=== PATIENT | male | born 1950 | race Caucasian/White ===

== ENCOUNTER 2016-09-04 20:38 | Inpatient (IN) | payer MEDICARE ==
[2016-09-04] MEDS ORDERED: NS 1,000 ML IV ONE (20:49)
[2016-09-04] MEDS ORDERED: ALBUTEROL 0.083% 3 ML NEB NEB ONE (20:50)
[2016-09-04 20:56] LABS: ALLEN'S TEST PASS; BEb 6.7 (+/- 2)
[2016-09-04 20:57] LABS: ABG Draw Site Right Radial
--- NOTE | 2016-09-04 20:58 | EDPRACDOC ---
- General Information Chief Complaint: Dyspnea/Resp distress Stated Complaint: RESP Time Seen by Provider: 09/04/16 20:42 Information Source: Patient Mode Of Arrival: Ambulance Allergies/Adverse Reactions: Allergies Allergy/AdvReac Type Severity Reaction Status Date / Time codeine Allergy See Verified 09/04/16 20:54 Comments - History of Present Illness Onset: 3 WEEKS HPI: PT HAS BEEN SOB FOR THE PAST FEW WEEKS. PT INITIALLY WENT TO URGENT CARE AND WAS TOLD HE HAD BRONCHITIS. HE WAS PUT ON PREDNISONE AND LEVAQUIN. PT SAID THAT HE WAS NOT GETTING ANY BETTER, SO HE WENT BACK TO URGENT CARE A FEW DAYS AGO. THE PT HAD A FEVER THEN. HIS ABX WAS CHANGED TO BIAXIN. THE PT IS STILL SOB. EMS GAVE PT 125 MG OF SOLU MEDROL AND 1 ALB NEB. 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 DRYING MACHINE OPERATOR YES Solu-Medrol (Dose/Time) 125 Meds/Treatments Given Neb Treatment(Albuterol) Medications MILK DRYING MACHINE OPERATOR (Medication/ dudneb and albuterol IH Dose/Time) EMS Treatment BLS,EKG IV Yes ED Past Medical History - Patient Medical History Cardiac History: Reports: Hypercholesterolemia Respiratory History: Reports: COPD Psychological History: Denies: Depression Surgical History: Reports: Appendectomy - Social Medical History Smoking Status: Heavy tobacco smoker (5 or more cigarettes/day or daily pipe/ cigar) ETOH: None Substance Abuse: None Lives With: Spouse Lives In: Home EDM Review of Systems - Review of Systems ROS Negative Except as Marked: Yes All systems reviewed and were negative except as marked Constitutional: Fever Respiratory: Shortness of Breath - Physical Exam Constitutional: Alert (Awake), Distress Oriented to: Time, Person, Place Last recorded Vital Signs: Last Vital Signs Temp 98.6 F 09/04/16 20:43 Pulse 115 09/04/16 20:43 Resp 27 H 09/04/16 20:43 BP 209/102 H 09/04/16 20:43 Pulse Ox 89 L 09/04/16 20:43 Oxygen Pulse Oxygen Saturation 89 O2 Device Oxygen Flow Rate Fraction of Inspired Oxygen ( FIO2) - HEENT Head: Normal ( normocephalic) Eye Exam: Normal (PERRL, EOMI, Sclera white) Oropharynx: Normal (Pharynx:Moist without exudate,Gums-no swelling) ENT EAC: Normal TMJ: Normal Nose: No Symptoms Reported (septum midline) Neck: Normal (FROM, trachea at midline) - Respiratory/Cardiovascular Respiratory: Tachypnea Cardiovascular: Tachycardia - GI Auscultation: Normal (NABS) Palpation: Normal (Soft,No rebound or guarding, non distended) Tenderness: Non tender Sewell's Sign: Negative - Musculoskeletal Back: Normal (Non-Tender) Extremities: Normal (Normal tone, Pulses 2+ No cyanosis or edema, FROM) - Integumentary Skin: Normal, Warm, Dry Lymphatics: Normal (no adenopathy) - Neurologic Memory Impaired: Normal Motor Function: Normal (Normal tone, Pulses 2+ No cyanosis or edema, FROM) Cranial Nerve: Normal (CN II-X11 intact sensation, strength 5/5) Cerebellar: Normal Mood Description: Normal Thought: Coherent Perception: Normal ED SOB MDM - Results Result Diagrams: 09/04/16 21:00 09/04/16 21:00 - EKG EKG #1 EKG Time: 20:49 -: Yes EKG interpreted by me Rate: bpm: 108 [place]: Normal Rhythm: ST Block: None Hypertrophy: None ST: Normal - Diagnostic Imaging Chest Image interpreted by: Radiologist Diagnostic Imaging Comments: Question slightly prominent central pulmonary arteries though cannot completely exclude RIGHT hilar enlargement by this portable lordotic exam; followup upright PA and lateral chest radiographs recommended to better assess - Departure Yes I personally saw and evaluated the patient. Disposition: Admit IP To This Hospital Condition: Fair Final Diagnosis: Acute exacerbation of chronic obstructive airways disease, Acute bronchitis, Tobacco abuse, Acute respiratory failure with hypoxia Instructions: COPD (Chronic Obstructive Pulmonary Disease) (ED) Education/Counseling Given To: Patient Education/Counseling Given Regarding: Diagnosis, Treatment, Follow Up Referrals: Pasha Farah MD [Primary Care Provider] - One Week Decision to Admit Time: 22:02 Decision to admit date: 09/04/16 Decision to admit: from ED - Physician Consulted Hospitalist Provider Called: Alex Salvador
[2016-09-04 21:14] LABS: AUTOMATED BASOPHIL 0.4 % (0-2); AUTOMATED LYMPH 8.6 % (17-44); AUTOMATED MONOCYTE 6.6 % (3-10); AUTOMATED NEUTROPHIL 84.4 % (45-76); MPV 8.5 fL (7.4-10.4)
[2016-09-04 21:22] LABS: PARTIAL THROMB. TIME 29.2 SEC (22-35)
[2016-09-04 21:25] LABS: BLOOD UREA NITROGEN 15 MG/DL (9-20); CALC CORRECTED 8.8 MG/DL (8.4-10.2); CALCIUM 8.3 MG/DL (8.4-10.2); CALCULATED OSMOLALITY 274 MOs/Kg (270-290); CHLORIDE 101 mEq/L (98-107); GLUCOSE 135 MG/DL (70-99); SODIUM LEVEL 141 mEq/L (137-146); TOTAL PROTEIN 6.5 G/DL (6.3-8.2)
--- NOTE | 2016-09-04 21:33 | DIRPT ---
CLINICAL DATA: Shortness of breath for past few weeks, bronchitis, not improving with treatment EXAM: PORTABLE CHEST 1 VIEW COMPARISON: Portable exam 2114 hours without priors for comparison. FINDINGS: Lordotic technique. Normal heart size. Question slightly prominent central pulmonary arteries. Mediastinal contours and pulmonary vascularity otherwise normal. Lungs clear. No pleural effusion or pneumothorax. IMPRESSION: Question slightly prominent central pulmonary arteries though cannot completely exclude RIGHT hilar enlargement by this portable lordotic exam; followup upright PA and lateral chest radiographs recommended to better assess. Electronically Signed By: Canelo London M.D. On: 09/04/2016 21:31
[2016-09-04] MEDS ORDERED: CEFTRIAXONE 1 GM in D5W 100 ML IV ONE (22:01)
[2016-09-04] MEDS ORDERED: AZITHROMYCIN 250 MG TAB PO ONE (22:01)
[2016-09-04] MEDS ORDERED: GUAIFENESIN 200 MG/10 ML UDC PO PRN (22:17)
[2016-09-04] MEDS ORDERED: Docusate Sodium 100 MG CAP PO PRN (22:17)
[2016-09-04] MEDS ORDERED: MAGNESIUM HYDROXIDE 30 ML BOTTLE PO PRN (22:17)
[2016-09-04] MEDS ORDERED: BENZONATATE 100 MG PERLES PO PRN (22:17)
[2016-09-04] MEDS ORDERED: ONDANSETRON HCL 4 MG/2 ML VIAL IV PRN (22:17)
[2016-09-04] MEDS ORDERED: ACETAMINOPHEN 325 MG/TAB TABLET PO PRN (22:17)
--- NOTE | 2016-09-04 22:17 | HISTPHYS ---
- Chief Complaint shortness of breath - History of Present Illness Mr. Francisco is a 66-year-old white male with a history of severe COPD not currently on oxygen at hold who presents the emergency room with approximately 10 days of increasing shortness of breath, cough and congestion. He was seen at urgent care approximately 1 week ago and started on antibiotics and prednisone. Despite aggressive care he has continued to deteriorate. He has been using his nebulizers on a regular basis and much more frequently the last 24-48 hours. Today he says he felt weak and dizzy. He could hear and self wheezing audibly. He had panting respirations. In the emergency room he is mildly hypercapnic but he severely hypoxic. He has increased work of breathing and significant distress. Chest x-ray shows no acute infiltrate but given his severe hypoxia and respiratory difficulty he will be admitted to the hospital for further evaluation and management. - Medical History Cardiac History: Reports: No Significant History, Hypercholesterolemia Respiratory History: Reports: COPD GI/ History: Reports: No Significant History Musculoskeletal History: Reports: No Significant History Systemic History: Reports: No Significant History Neurological History: Reports: No Significant History Psychological History: Denies: Depression - Surgical History Reports: Appendectomy - Medictions/Allergies Allergies codeine Allergy (Verified 09/04/16 20:54) See Comments sedation Current Medication List: Reviewed - Family History Reports: Hypertension, Cardiac Disorders - Social History Travel Outside of [place] in the Last 3 Months?: No Lives: With Family Smoking Status: Heavy tobacco smoker (5 or more cigarettes/day or daily pipe/ cigar) Social History: Denies: Alcohol Use - Review of Systems Yes All systems reviewed and were negative except as marked Constitutional: Fever, Fatigue, Weakness - Eyes No Symptoms Reported. negative: Blurred Vision, Double Vision, Discharge, Redness - Ears No Symptoms Reported. negative: Drainage, Hearing Loss - Nose No Symptoms Reported. negative: Abrasion, Bleeding, Congestion - Mouth Mouth: No Symptoms Reported. negative: Pain, Drooling - Throat/Neck No Symptoms Reported. negative: Pain, Hoarseness, Snoring - Respiratory Cough, Shortness of Breath, Wheezing, Bronchitis. negative: Sputum - Cardiovascular No Symptoms Reported. negative: Chest Pain, Cyanosis, Palpitations - Gastrointestinal Gastrointestinal: No Symptoms Reported. negative: Nausea, Vomiting, Abdominal Pain - Genitourinary Genitourinary: No Symptoms Reported. negative: Bleeding, Dysuria, Discharge - Neurological No Symptoms Reported. negative: Dizziness, Seizure - Musculoskeletal Musculoskeletal:: No Symptoms Reported. negative: Chronic low back pain, Stiffness, Gout - Integumentary No Symptoms Reported. negative: Bruising, Rash - Allergic/Immunologic No Symptoms Reported. negative: Hives, Itching - Hematologic No Symptoms Reported. negative: Lymphadenopathy, Anemia - Endocrine No Symptoms Reported. negative: Weight Gain, Weight Loss, Excessive Sweating, Heat Intolerance - Psychiatric No Symptoms Reported. negative: Anxiety, Depression, Hallucinations - Physical Exam Constitutional: Alert (Awake), Distress. negative: Well appearing (Acutely ill- appearing) Oriented to: Time, Person, Place Exam: Last Vital Signs Temp 98.6 F 09/04/16 20:43 Pulse 105 09/04/16 21:13 Resp 22 09/04/16 21:13 BP 167/79 09/04/16 21:13 Pulse Ox 92 09/04/16 21:13 Intake & Output 09/04/16 09/04/16 09/04/16 07:59 15:59 23:59 Patient's weight 102.058 kg - HEENT Head: Normal ( normocephalic) Eye: Normal (PERRL, EOMI, Sclera white) Oropharynx: Normal (Pharynx:Moist without exudate,Gums-no swelling) ENT EAC: Normal TMJ: Normal Nose: No Symptoms Reported (septum midline) - Respiratory/Cardiovascular Respiratory: Accessory Muscle Use, Rhonchi, Tachypnea, Wheezes, Other ( Increased work of breathing) Cardiovascular: Tachycardia. negative: Irregular, Systolic murmur - GI Auscultation: Normal (NABS) Palpation: Normal (Soft,No rebound or guarding, non distended) Tenderness: Non tender - Musculoskeletal Back: Normal (Non-Tender). negative: Abrasion, Ecchymosis Extremities: Normal (Normal tone, Pulses 2+ No cyanosis or edema, FROM), Femoral Pulse, Pedal Pulse. negative: Calf Tenderness, Clubbing, Edema, Pedal Edema - Integumentary Skin: Normal, Warm, Dry Lymphatics: Normal (no adenopathy). negative: Adenopathy - Neurologic Memory Impaired: Normal Motor Function: Normal Cranial Nerve: Normal Cerebellar: Normal Mood Description: Normal Thought: Coherent Perception: Normal - Focused CV Perfusion Exam Vital Signs: Last Vital Signs Temp 98.6 F 09/04/16 20:43 Pulse 105 09/04/16 21:13 Resp 22 09/04/16 21:13 BP 167/79 09/04/16 21:13 Pulse Ox 92 09/04/16 21:13 - Lab Results Laboratory Results - last 24 hr 09/04/16 09/04/16 09/04/16 20:50 21:00 21:00 WBC RBC Hgb Hct MCV MCH MCHC RDW Plt Count MPV Neut % (Auto) Lymph % (Auto) [place] % (Auto) Eos % (Auto) Baso % (Auto) Absolute Neuts (auto) Absolute Lymphs (auto) PT INR APTT Puncture Site Right radial pH 7.390 pCO2 55.0 H pO2 54.0 L HCO3 33.3 H Total CO2 35.0 H Base Excess 6.7 H FiO2 % .21 Specimen Drawn By [employer] Sodium 141 Potassium 4.1 Chloride 101 Carbon Dioxide 34 H Anion Gap 10 BUN 15 Creatinine 0.70 Estimated GFR (MDRD) > 60 Glucose 135 H Calculated Osmolality 274 Lactic Acid 1.2 Calcium 8.3 L Corrected Calcium 8.8 Total Bilirubin 0.4 AST 44 ALT 47 Alkaline Phosphatase 55 Troponin I < 0.01 Total Protein 6.5 Albumin 3.5 09/04/16 09/04/16 21:00 21:00 WBC 14.1 H RBC 5.33 Hgb 15.9 Hct 48.3 MCV 91 MCH 29.9 MCHC 33.0 RDW 14.6 H Plt Count 162 MPV 8.5 Neut % (Auto) 84.4 H Lymph % (Auto) 8.6 L [place] % (Auto) 6.6 Eos % (Auto) 0.0 Baso % (Auto) 0.4 Absolute Neuts (auto) 11.84 H Absolute Lymphs (auto) 1.13 PT 10.7 INR 1.0 APTT 29.2 Puncture Site pH pCO2 pO2 HCO3 Total CO2 Base Excess FiO2 % Specimen Drawn By Sodium Potassium Chloride Carbon Dioxide Anion Gap BUN Creatinine Estimated GFR (MDRD) Glucose Calculated Osmolality Lactic Acid Calcium Corrected Calcium Total Bilirubin AST ALT Alkaline Phosphatase Troponin I Total Protein Albumin - Assessment (1) Acute respiratory failure with hypoxia J96.01 - ACUTE RESPIRATORY FAILURE WITH HYPOXIA Acute Present on Admission: Yes Severe with significant hypoxia. He does not currently wear oxygen at home and unfortunately continues to smoke 2 packs of cigarettes daily. He says he is willing to stay in the hospital for a day but if no better wants to leave. He is wheezing diffusely with increased work of breathing. We will start him on IV Solu-Medrol at high dose. IV Rocephin azithromycin. Will use duo nebs and Mucomyst nebs to help with secretions. (2) Acute bronchitis J20.9 - ACUTE BRONCHITIS, UNSPECIFIED Acute Present on Admission: Yes IV antibiotics and pulmonary toilet (3) Acute exacerbation of chronic obstructive airways disease J44.1 - CHRONIC OBSTRUCTIVE PULMONARY DISEASE W (ACUTE) EXACERBATION Acute Present on Admission: Yes IV Solu-Medrol at high dose. Nebulizer treatments and pulmonary toilet. (4) Tobacco abuse Z72.0 - TOBACCO USE Acute Present on Admission: Yes Counseled cessation. However he does not seem particularly interested in quitting Case Care Discussed with: Patient, Family, Nursing Staff, Resource Management, Respiratory Therapy
[2016-09-04] MEDS ORDERED: Vaccine Screening Complete SCH (23:00)
[2016-09-04] MEDS: NS/KCl 20 mEq 1,000 ML IV SCH (23:49)
[2016-09-04] MEDS: METHYLPREDNISOLONE 125 MG/2 ML VIAL IV SCH (23:51)
[2016-09-05] MEDS: NICOTINE 21 MG PATCH TOP SCH ×2 (00:14→23:36)
[2016-09-05] MEDS: ENOXAPARIN 40 MG/0.4 ML PFS SQ SCH ×3 (00:15→17:39)
[2016-09-05] MEDS: LORAZEPAM 2 MG/ML VIAL IV PRN ×4 (00:18→23:37)
[2016-09-05] MEDS: AZITHROMYCIN 500 MG in D5W 250 ML IV SCH (00:22)
[2016-09-05] MEDS ORDERED: ENOXAPARIN 60 MG/0.6 ML PFS SQ SCH (01:00)
[2016-09-05] MEDS: ACETYLCYSTEINE 20% SOLN 4 ML NEB SCH ×3 (02:02→20:01)
[2016-09-05] MEDS: Albuterol/Ipratropium Neb 3 ML NEB NEB SCH ×4 (02:03→19:59)
[2016-09-05 03:29] LABS: BLOOD UREA NITROGEN 16 MG/DL (9-20); CALCIUM 8.4 MG/DL (8.4-10.2); CALCULATED OSMOLALITY 273 MOs/Kg (270-290); CHLORIDE 102 mEq/L (98-107); GLUCOSE 156 MG/DL (70-99); SODIUM LEVEL 140 mEq/L (137-146)
[2016-09-05 05:29] LABS: ALLEN'S TEST PASS; BEb 3.2 (+/- 2); TCO2 33.5 MMOL/L (23-27)
[2016-09-05 05:31] LABS: ABG Draw Tech RR; MODE NC RATE
[2016-09-05] MEDS: METHYLPREDNISOLONE 125 MG/2 ML VIAL IV SCH ×4 (06:06→23:37)
[2016-09-05] MEDS: NS/KCl 20 mEq 1,000 ML IV SCH ×3 (11:04→20:34)
[2016-09-05] MEDS ORDERED: NICOTINE PO PRN (13:55)
[2016-09-05] MEDS ORDERED: NICOTINE PO SCH (14:05)
--- NOTE | 2016-09-05 21:27 | GENMEDPROG ---
Subjective Note: Patient in bed responsive follows commands ,visibly short of breath with audible wheezes and rhonchi as. Coughing producing fair amount thick sputum Notes Reviewed: Yes Events from last night noted and discussed with Clinical Staff Current Medication List: Reviewed Currently: Reports: Cough, Wheezing, SANTANA, SOB, Sputum, Tobacco Use/Hx, Alcohol Hx, Reflux Sx DVT Prophylaxis: Yes - Physical Examination Vital Signs and I&O: Last Vital Signs Temp 98.5 F 09/05/16 17:04 Pulse 105 09/05/16 20:02 Resp 20 09/05/16 17:04 BP 135/89 09/05/16 17:04 Pulse Ox 92 09/05/16 20:02 Oxygen Pulse Oxygen Saturation 92 O2 Device Nasal Cannula Oxygen Flow Rate 1 Fraction of Inspired Oxygen ( FIO2) Intake & Output 09/02/16 09/03/16 09/04/16 09/05/16 23:59 23:59 23:59 23:59 Intake Total 1005 2203 Output Total 200 2325 Balance 805 -122 Patient's weight 98.203 kg 98.571 kg General: Alert, Oriented x3, Cooperative, Moderate distress HEENT: Normal, PERRLA, EOMI, Anicteric Sclera Neck: Non-tender, Normal inspection, Limited range of motion Lymphatics: Normal (no adenopathy). negative: Adenopathy Respiratory: Accessory Muscle Use, Diminished, Rhonchi, Tachypnea, Wheezes, Other (Increased work of breathing) Cardiovascular: Regular rate, Normal S1, Normal S2, Murmurs GI: Normal bowel sounds, Soft, Non tender, No hepatospenomegaly, No masses, Obese Extremities/Musculoskeletal: Normal pulses, Edema, Clubbing, Cyanosis, DJD Skin: Warm,Dry and Intact, No rashes, No breakdown, No significant lesion Neurological: Normal tone, Cranial nerves 3-12 NL Psych/Mental Status: Anxious Last Vital Signs Temp 98.5 F 09/05/16 17:04 Pulse 105 09/05/16 20:02 Resp 20 09/05/16 17:04 BP 135/89 09/05/16 17:04 Pulse Ox 92 09/05/16 20:02 09/05/16 03:10 09/05/16 03:10 Patient Name: JOSE DE JESUS CALZADA LOC: ED : 1950 AGE: 66 Order Date:09/04/16 Date of Service:01/14 Report # [id number] Ord Physician: Kerry Bailon MD Exam # [id number] Emergency Physician: Kerry Bailon MD Exam(s): [id number] RAD/DG CHEST PORTABLE CLINICAL DATA: Shortness of breath for past few weeks, bronchitis, not improving with treatment EXAM: PORTABLE CHEST 1 VIEW COMPARISON: Portable exam 2114 hours without priors for comparison. FINDINGS: Lordotic technique. Normal heart size. Question slightly prominent central pulmonary arteries. Mediastinal contours and pulmonary vascularity otherwise normal. Lungs clear. No pleural effusion or pneumothorax. IMPRESSION: Question slightly prominent central pulmonary arteries though cannot completely exclude RIGHT hilar enlargement by this portable lordotic exam; followup upright PA and lateral chest radiographs recommended to better assess. Electronically Signed By: Canelo London M.D. On: 09/04/2016 21:31 - Assessment (1) Acute respiratory failure with hypoxia Acute J96.01 - ACUTE RESPIRATORY FAILURE WITH HYPOXIA Comment/Plan: Severe with significant hypoxia. He does not currently wear oxygen at home and unfortunately continues to smoke 2 packs of cigarettes daily. He says he is willing to stay in the hospital for a day but if no better wants to leave. He is wheezing diffusely with increased work of breathing. We will start him on IV Solu-Medrol at high dose. IV Rocephin azithromycin. Will use duo nebs and Mucomyst nebs to help with secretions. (2) Acute exacerbation of chronic obstructive airways disease Acute J44.1 - CHRONIC OBSTRUCTIVE PULMONARY DISEASE W (ACUTE) EXACERBATION Comment/Plan: IV Solu-Medrol at high dose. Nebulizer treatments and pulmonary toilet. (3) Bronchopneumonia Acute J18.0 - BRONCHOPNEUMONIA, UNSPECIFIED ORGANISM Comment/Plan: Continue antibiotics mucolytics and aggressive pulmonary toilet. (4) HTN (hypertension) Acute I10 - ESSENTIAL (PRIMARY) HYPERTENSION Qualifiers: Hypertension type: essential hypertension Qualified Code(s): I10 - Essential (primary) hypertension Comment/Plan: Continue benazepril (5) GERD (gastroesophageal reflux disease) Acute K21.9 - GASTRO-ESOPHAGEAL REFLUX DISEASE WITHOUT ESOPHAGITIS Qualifiers: Esophagitis presence: without esophagitis Qualified Code(s): K21.9 - Gastro -esophageal reflux disease without esophagitis Comment/Plan: add PI (6) Nicotine addiction Acute F17.200 - NICOTINE DEPENDENCE, UNSPECIFIED, UNCOMPLICATED Qualifiers: Nicotine product type: cigarettes Substance use status: other nicotine- induced disorder Qualified Code(s): F17.218 - Nicotine dependence, cigarettes , with other nicotine-induced disorders Comment/Plan: Strongly encouraged to cut back and quit Case Care Discussed with: Patient, Family, Nursing Staff, Respiratory Therapy, Reservation Agent Education/Counseling Given To: Patient Education/Counseling Given Regarding: Diagnosis, Treatment, Prognosis, Follow Up Total Time: 50 min . Critical Care: No Code: 25272 (12+)
[2016-09-05] MEDS: CEFTRIAXONE 1 GM in D5W 100 ML IV SCH (23:36)
[2016-09-06] MEDS ORDERED: LORAZEPAM 2 MG/ML VIAL IV ONE (01:13)
[2016-09-06] MEDS ORDERED: LORAZEPAM 2 MG/ML VIAL IV PRN ×2 (01:27→14:54)
[2016-09-06] MEDS: AZITHROMYCIN 500 MG in D5W 250 ML IV SCH (01:32)
[2016-09-06] MEDS: Albuterol/Ipratropium Neb 3 ML NEB NEB SCH ×4 (01:42→20:12)
[2016-09-06] MEDS: NS/KCl 20 mEq 1,000 ML IV SCH ×3 (05:48→21:49)
[2016-09-06] MEDS: PANTOPRAZOLE 40 MG TAB PO SCH (05:51)
[2016-09-06] MEDS: METHYLPREDNISOLONE 125 MG/2 ML VIAL IV SCH ×4 (05:51→21:55)
[2016-09-06] MEDS: Albuterol/Ipratropium Neb 3 ML NEB NEB PRN ×3 (05:57→23:02)
[2016-09-06 07:02] LABS: BLOOD UREA NITROGEN 20 MG/DL (9-20); CALCIUM 8.6 MG/DL (8.4-10.2); CALCULATED OSMOLALITY 273 MOs/Kg (270-290); CHLORIDE 97 mEq/L (98-107); GLUCOSE 124 MG/DL (70-99); SODIUM LEVEL 140 mEq/L (137-146)
[2016-09-06] MEDS: ROSUVASTATIN 10 MG TAB PO SCH (08:51)
[2016-09-06] MEDS: GUAIFENESIN 600 MG LA TAB PO SCH ×2 (08:51→21:50)
[2016-09-06] MEDS ORDERED: BUDESONIDE 0.5 MG NEB NEB SCH (09:00)
[2016-09-06] MEDS ORDERED: ACLIDINIUM BROMIDE IH SCH (09:00)
[2016-09-06] MEDS ORDERED: Non-Formulary Medication ITEM (Rosuvastatin Calcium [Crestor] 5 MG) PO SCH (09:00)
[2016-09-06] MEDS ORDERED: ASPIRIN (CHEWABLE) 81 MG TAB PO SCH (09:00)
--- NOTE | 2016-09-06 10:05 | DIRPT ---
CLINICAL DATA: Respiratory failure. EXAM: CHEST 2 VIEW COMPARISON: Chest x-ray dated 09/04/2016. FINDINGS: Mild cardiomegaly is stable. Again noted is at least mild prominence of the bilateral pulmonary arteries suggesting some degree of pulmonary artery hypertension. There is, however, asymmetric fullness of the right hilum. Lungs remain clear. No evidence of pneumonia. No pleural effusion seen. No pneumothorax seen. No osseous abnormality. IMPRESSION: Asymmetric fullness of the right hilum. This may be related to some degree of pulmonary artery hypertension, however, perihilar mass or lymphadenopathy cannot be excluded. Recommend chest CT with contrast for more definitive characterization. Lungs remain clear. No evidence of pneumonia. No evidence of CHF. These results will be called to the ordering clinician or environmental marketing representative by the Radiologist Sweat Box Attendant, and communication documented in the PACS or [employer] Dashboard. Electronically Signed By: Don Nye M.D. On: 09/06/2016 10:02
[2016-09-06] MEDS: ACETYLCYSTEINE 20% SOLN 4 ML NEB SCH ×2 (10:58→20:13)
[2016-09-06] MEDS: BUDESONIDE 0.5 MG NEB NEB SCH ×2 (10:59→20:13)
[2016-09-06] MEDS: BENAZEPRIL 20 MG TAB PO SCH (12:00)
--- NOTE | 2016-09-06 14:59 | GENMEDPROG ---
Subjective Note: Patient in bed responsive follows commands. Still visibly short of breath acutely ill but not toxic-appearing. Audible rhonchi some wheezes. Periods of confusion noted by nursing staff. Notes Reviewed: Yes Events from last night noted and discussed with Clinical Staff Current Medication List: Reviewed Currently: Reports: Cough, Wheezing, SANTANA, SOB, Sputum, Tobacco Use/Hx, Alcohol Hx, Reflux Sx DVT Prophylaxis: Yes - Physical Examination Vital Signs and I&O: Last Vital Signs Temp 97.6 F 09/06/16 06:00 Pulse 98 09/06/16 06:00 Resp 20 09/06/16 06:00 BP 134/84 09/06/16 06:00 Pulse Ox 93 09/06/16 08:00 Oxygen Pulse Oxygen Saturation 93 O2 Device Nasal Cannula Oxygen Flow Rate 1 Fraction of Inspired Oxygen ( FIO2) Intake & Output 09/03/16 09/04/16 09/05/16 09/06/16 23:59 23:59 23:59 23:59 Intake Total 1005 2203 1661 Output Total 200 3175 1450 Balance 805 -972 211 Patient's weight 98.203 kg 98.571 kg 99.393 kg General: Alert, Oriented x3, Cooperative, Moderate distress HEENT: Normal, PERRLA, EOMI, Anicteric Sclera Neck: Non-tender, Normal inspection, Limited range of motion Lymphatics: Normal (no adenopathy). negative: Adenopathy Respiratory: Accessory Muscle Use, Diminished, Rhonchi, Tachypnea, Wheezes, Other (Increased work of breathing) Cardiovascular: Regular rate, Normal S1, Normal S2, Murmurs GI: Normal bowel sounds, Soft, Non tender, No hepatospenomegaly, No masses, Obese Extremities/Musculoskeletal: Normal pulses, Edema, Clubbing, Cyanosis, DJD Skin: Warm,Dry and Intact, No rashes, No breakdown, No significant lesion Neurological: Normal tone, Cranial nerves 3-12 NL Psych/Mental Status: Anxious Lab/DI/Studies Reviewed: Patient Name: JOSE DE JESUS CALZADA LOC: [facility] : 1950 AGE: 66 Order Date:09/05/16 Date of Service:03/16 Report # [id number] Ord Physician: Charles Briones MD Exam # [id number] Emergency Physician: Kerry Bailon MD Exam(s): [id number] RAD/DG CHEST 2V CLINICAL DATA: Respiratory failure. EXAM: CHEST 2 VIEW COMPARISON: Chest x-ray dated 09/04/2016. FINDINGS: Mild cardiomegaly is stable. Again noted is at least mild prominence of the bilateral pulmonary arteries suggesting some degree of pulmonary artery hypertension. There is, however, asymmetric fullness of the right hilum. Lungs remain clear. No evidence of pneumonia. No pleural effusion seen. No pneumothorax seen. No osseous abnormality. IMPRESSION: Asymmetric fullness of the right hilum. This may be related to some degree of pulmonary artery hypertension, however, perihilar mass or lymphadenopathy cannot be excluded. Recommend chest CT with contrast for more definitive characterization. Lungs remain clear. No evidence of pneumonia. No evidence of CHF. These results will be called to the ordering clinician or international account representative by the Radiologist Customer Data Technician, and communication documented in the PACS or [employer] Dashboard. Electronically Signed By: Don Nye M.D. - Assessment (1) Acute respiratory failure with hypoxia Acute J96.01 - ACUTE RESPIRATORY FAILURE WITH HYPOXIA Comment/Plan: Continue O2 nebs and pulmonary toilet.. Patient remains severely symptomatic. Continue high-dose IV steroids (2) Acute exacerbation of chronic obstructive airways disease Acute J44.1 - CHRONIC OBSTRUCTIVE PULMONARY DISEASE W (ACUTE) EXACERBATION Comment/Plan: IV Solu-Medrol at high dose. Nebulizer treatments and pulmonary toilet. Continue mucolytics and pulmonary toilet. (3) Bronchopneumonia Acute J18.0 - BRONCHOPNEUMONIA, UNSPECIFIED ORGANISM Comment/Plan: Continue antibiotics mucolytics and aggressive pulmonary toilet. Will obtain CT chest to further delineate underlying lung pathology (4) HTN (hypertension) Acute I10 - ESSENTIAL (PRIMARY) HYPERTENSION Qualifiers: Hypertension type: essential hypertension Qualified Code(s): I10 - Essential (primary) hypertension Comment/Plan: Continue benazepril (5) GERD (gastroesophageal reflux disease) Acute K21.9 - GASTRO-ESOPHAGEAL REFLUX DISEASE WITHOUT ESOPHAGITIS Qualifiers: Esophagitis presence: without esophagitis Qualified Code(s): K21.9 - Gastro -esophageal reflux disease without esophagitis Comment/Plan: add PI (6) Nicotine addiction Acute F17.200 - NICOTINE DEPENDENCE, UNSPECIFIED, UNCOMPLICATED Qualifiers: Nicotine product type: cigarettes Substance use status: other nicotine- induced disorder Qualified Code(s): F17.218 - Nicotine dependence, cigarettes , with other nicotine-induced disorders Comment/Plan: Strongly encouraged to cut back and quit Case Care Discussed with: Patient, Nursing Staff, Respiratory Therapy, Corporate Statistical Financial Analyst Education/Counseling Given To: Patient Education/Counseling Given Regarding: Diagnosis, Treatment, Prognosis, Follow Up Total Time: 45 min . Critical Care: No Code: 37401 (12+)
[2016-09-06] MEDS ORDERED: Pharmacy Review for Metformin - IV Contrast Given SCH (15:00)
--- NOTE | 2016-09-06 15:59 | DIRPT ---
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 I favor that the 2 pleural-based nodules within the right lung are thymic metastases. The additional spiculated nodule within the right upper lobe may be a synchronous primary lung cancer. Electronically Signed By: Don Nye M.D. On: 09/06/2016 16:04 CLINICAL DATA: Shortness of breath, respiratory failure EXAM: CT ANGIOGRAPHY CHEST WITH CONTRAST TECHNIQUE: Multidetector CT imaging of the chest was performed using the standard protocol during bolus administration of intravenous contrast. Multiplanar CT image reconstructions and MIPs were obtained to evaluate the vascular anatomy. CONTRAST: 100 cc Isovue 370 COMPARISON: Chest x-ray from earlier same day. FINDINGS: There is a lobular soft tissue density mass located along the right anterior-lateral margin of the cardiac border, measuring 5.5 x 4 x 6.7 cm (transverse by AP by craniocaudal dimensions), containing scattered coarse calcifications. It is favored to be a primary anterior mediastinal mass, less likely lung mass extending into the mediastinum. Oval nodule within the immediately adjacent anterior right lung, along the upper margin of the right middle lobe, measures 1.7 x 1 cm. Additional scattered small lymph nodes noted within the mediastinum. No additional masses or enlarged lymph nodes seen within the mediastinum or perihilar regions. No axillary lymphadenopathy. Heart size is normal. No pericardial effusion. Thoracic aorta is normal in caliber and configuration, with mild atherosclerotic changes. There is an additional spiculated nodule within the right upper lobe, measuring 1.5 x 1.1 cm (series 3, image 51). Slightly irregular pulmonary nodule is also seen within the medial aspects of the right lower lobe, measuring 1.1 x 1 cm (series 3, image 75). Left lung is clear. Mild degenerative changes seen within the thoracic spine but no acute osseous abnormality. No evidence of osseous metastasis. Limited images of the upper abdomen are unremarkable. Superficial soft tissues are unremarkable peer Review of the MIP images confirms the above findings. IMPRESSION: 1. Lobular soft tissue density mass along the right anterior-lateral margin of the cardiac border, with associated coarse calcifications, corresponding to the chest x-ray findings, measuring 5.5 x 4 x 6.7 cm, most likely an anterior mediastinal mass. Differential includes thymoma, germ-cell tumor and lymphoma. This is less likely a primary lung cancer with invasion of the mediastinum. Tissue sampling recommended. 2. Spiculated pulmonary nodule within the right upper lobe, measuring 1.5 x 1.1 cm, highly suspicious for additional neoplastic process of either primary lung cancer or metastasis. 3. Two additional pulmonary nodules, medial right lower lobe and anterior right middle, suspicious for additional metastatic disease. 4. Left lung is clear. These results will be called to the ordering clinician or patient service representative by the Radiologist [employer] Line Finisher, and communication documented in the PACS or [facility] Dashboard. Electronically Signed: By: Don Nye M.D. On: 09/06/2016 15:56
[2016-09-06] MEDS: ENOXAPARIN 40 MG/0.4 ML PFS SQ SCH (17:38)
[2016-09-06] MEDS: Levofloxacin 750 mg/150 ml D5W 750 MG/150 ML RTU IV SCH (17:38)
[2016-09-06] MEDS: CEFTRIAXONE 1 GM in D5W 100 ML IV SCH (21:49)
[2016-09-06] MEDS: NICOTINE 21 MG PATCH TOP SCH (21:50)
[2016-09-07] MEDS: Albuterol/Ipratropium Neb 3 ML NEB NEB SCH ×4 (01:26→20:36)
[2016-09-07] MEDS ORDERED: HALOPERIDOL 5 MG/ML VIAL IM ONE (03:20)
[2016-09-07] MEDS ORDERED: LORAZEPAM 2 MG/ML VIAL IV PRN (03:21)
[2016-09-07] MEDS: PANTOPRAZOLE 40 MG TAB PO SCH (06:30)
[2016-09-07] MEDS: METHYLPREDNISOLONE 125 MG/2 ML VIAL IV SCH ×4 (06:30→22:05)
[2016-09-07] MEDS: NS/KCl 20 mEq 1,000 ML IV SCH ×4 (07:47→21:20)
[2016-09-07] MEDS: ROSUVASTATIN 10 MG TAB PO SCH (07:48)
[2016-09-07] MEDS: GUAIFENESIN 600 MG LA TAB PO SCH ×2 (07:48→20:16)
[2016-09-07] MEDS: BENAZEPRIL 20 MG TAB PO SCH (07:48)
[2016-09-07 08:46] LABS: ALLEN'S TEST PASS; BEb 7.7 (+/- 2)
[2016-09-07 08:55] LABS: ABG Draw Site Right Radial
[2016-09-07] MEDS: ACETYLCYSTEINE 20% SOLN 4 ML NEB SCH ×2 (08:58→20:43)
[2016-09-07] MEDS: BUDESONIDE 0.5 MG NEB NEB SCH ×2 (08:58→20:43)
[2016-09-07] MEDS: LORAZEPAM 2 MG/ML VIAL IV PRN ×3 (11:37→21:47)
--- NOTE | 2016-09-07 12:59 | GENMEDPROG ---
Chief Complaint: Cough, confusion, hypoxia Subjective Note: Was called semi urgently to the patient's room this morning, as he was getting more confused, pulled out multiple IVs and was refusing BiPAP for breathing treatments. I came to talk to the patient, and also summoned his , son and [id number] who is a practicing RN to joints in the discussion. Had a long discussion with them. Patient currently denies significant shortness of breath , able to speak full sentences. Currently: Reports: Cough, Wheezing, SANTANA, SOB, Sputum, Tobacco Use/Hx, Alcohol Hx, Reflux Sx DVT Prophylaxis: Yes - Physical Examination Vital Signs and I&O: Last Vital Signs Temp 98.2 F 09/06/16 21:40 Pulse 98 09/06/16 22:24 Resp 18 09/07/16 12:48 BP 154/84 09/06/16 21:40 Pulse Ox 96 09/07/16 12:48 Oxygen Pulse Oxygen Saturation 96 O2 Device Nasal Cannula Oxygen Flow Rate 2 Fraction of Inspired Oxygen ( 30 FIO2) Intake & Output 09/05/16 09/06/16 09/07/16 09/08/16 06:59 06:59 06:59 06:59 Intake Total 1843 2666 3162 200 Output Total 1300 2750 1575 Balance 543 -84 1587 200 Patient's weight 98.571 kg 99.393 kg 98.883 kg General: Alert, Oriented x3, Cooperative, Moderate distress HEENT: Normal, PERRLA, EOMI, Anicteric Sclera Neck: Non-tender, Normal inspection, Limited range of motion Lymphatics: Normal (no adenopathy). negative: Adenopathy Respiratory: Accessory Muscle Use, Diminished, Rhonchi, Tachypnea, Wheezes, Other (Increased work of breathing) Cardiovascular: Regular rate, Normal S1, Normal S2, Murmurs GI: Normal bowel sounds, Soft, Non tender, No hepatospenomegaly, No masses, Obese Extremities/Musculoskeletal: Normal pulses, Edema, Clubbing, Cyanosis, DJD Skin: Warm,Dry and Intact, No rashes, No breakdown, No significant lesion Neurological: Normal tone, Cranial nerves 3-12 NL Psych/Mental Status: Anxious Lab/DI/Studies Reviewed: Laboratory Tests 09/05/16 09/06/16 09/07/16 05:23 06:08 08:42 pH 7.310 L pCO2 64.0 H 73.0 H* Potassium 4.8 BUN 20 Creatinine 0.60 L - Assessment (1) Lung mass Acute R91.8 - OTHER NONSPECIFIC ABNORMAL FINDING OF LUNG FIELD Comment/Plan : Patient is right mediastinal mass, unclear etiology. This could represent malignancy. Discussed today with the patient and his family at the bedside. They understand this, and he seems also have a limited understanding of this although he seems to have periods of confusion. Will treat COPD exacerbation as above, he will need further diagnostic workup if he desires full treatment. (2) Acute exacerbation of chronic obstructive airways disease Acute J44.1 - CHRONIC OBSTRUCTIVE PULMONARY DISEASE W (ACUTE) EXACERBATION Comment/Plan: IV Solu-Medrol at high dose. Nebulizer treatments and pulmonary toilet. Continue mucolytics and pulmonary toilet. Patient with worsening hypercapnic failure this morning, will require BiPAP. After long discussion, patient agrees to have IV replaced, will receive IV Ativan and hopefully this will allow him to tolerate BiPAP and breathing treatment. (3) Acute respiratory failure with hypoxia Acute J96.01 - ACUTE RESPIRATORY FAILURE WITH HYPOXIA Comment/Plan: Continue O2 nebs and pulmonary toilet.. Patient remains severely symptomatic. Continue high-dose IV steroids (4) Bronchopneumonia Acute J18.0 - BRONCHOPNEUMONIA, UNSPECIFIED ORGANISM Comment/Plan: Continue antibiotics mucolytics and aggressive pulmonary toilet. Will obtain CT chest to further delineate underlying lung pathology (5) GERD (gastroesophageal reflux disease) Acute K21.9 - GASTRO-ESOPHAGEAL REFLUX DISEASE WITHOUT ESOPHAGITIS Qualifiers: Esophagitis presence: without esophagitis Qualified Code(s): K21.9 - Gastro -esophageal reflux disease without esophagitis Comment/Plan: add PI (6) Tobacco abuse Acute Z72.0 - TOBACCO USE Comment/Plan: Counseled cessation. However he does not seem particularly interested in quitting
[2016-09-07] MEDS: HALOPERIDOL 5 MG/ML VIAL IM PRN (14:56)
[2016-09-07] MEDS: Levofloxacin 750 mg/150 ml D5W 750 MG/150 ML RTU IV SCH (14:57)
[2016-09-07] MEDS: Albuterol/Ipratropium Neb 3 ML NEB NEB PRN (16:52)
[2016-09-07] MEDS: ENOXAPARIN 40 MG/0.4 ML PFS SQ SCH (17:15)
[2016-09-07] MEDS: CEFTRIAXONE 1 GM in D5W 100 ML IV SCH (21:46)
[2016-09-07] MEDS: NICOTINE 21 MG PATCH TOP SCH (21:47)
[2016-09-08] MEDS: Albuterol/Ipratropium Neb 3 ML NEB NEB SCH ×4 (02:06→19:24)
[2016-09-08] MEDS: LORAZEPAM 2 MG/ML VIAL IV PRN ×3 (02:24→17:52)
[2016-09-08] MEDS: NS/KCl 20 mEq 1,000 ML IV SCH ×4 (04:31→17:35)
[2016-09-08] MEDS: METHYLPREDNISOLONE 125 MG/2 ML VIAL IV SCH ×3 (04:31→17:35)
[2016-09-08] MEDS: PANTOPRAZOLE 40 MG TAB PO SCH (04:37)
[2016-09-08] MEDS: HALOPERIDOL 5 MG/ML VIAL IM PRN (04:49)
[2016-09-08] MEDS: Albuterol/Ipratropium Neb 3 ML NEB NEB PRN (05:26)
[2016-09-08 06:27] VITALS: BMI 30.1
[2016-09-08] MEDS: ROSUVASTATIN 10 MG TAB PO SCH (08:12)
[2016-09-08] MEDS: BENAZEPRIL 20 MG TAB PO SCH (08:12)
[2016-09-08] MEDS: GUAIFENESIN 600 MG LA TAB PO SCH ×2 (08:13→21:35)
[2016-09-08] MEDS: ACETYLCYSTEINE 20% SOLN 4 ML NEB SCH ×2 (08:21→19:30)
[2016-09-08] MEDS: BUDESONIDE 0.5 MG NEB NEB SCH ×2 (08:24→19:26)
[2016-09-08 12:20] LABS: ALLEN'S TEST PASS; BEb 9.2 (+/- 2); TCO2 39.6 MMOL/L (23-27)
[2016-09-08 12:21] LABS: ABG Draw Site Left Radial; ABG Draw Tech ED
--- NOTE | 2016-09-08 12:40 | GENMEDPROG ---
Chief Complaint: COPD exacerbation Subjective Note: No acute events overnight. He did tolerate BiPAP overnight. Patient continues to tell me that he does not know why he is in the hospital, and feels like he is not improving. Tells me that he has a DNR and does not want any care. Had an opportunity to talk to the patient's son extensively in the hallway after seeing the patient. Currently: Reports: Cough, Wheezing, SANTANA, SOB, Sputum, Tobacco Use/Hx, Alcohol Hx, Reflux Sx DVT Prophylaxis: Yes - Physical Examination Vital Signs and I&O: Last Vital Signs Temp 98.6 F 09/08/16 06:00 Pulse 114 09/08/16 06:00 Resp 18 09/08/16 06:00 BP 178/90 09/08/16 06:00 Pulse Ox 93 09/08/16 08:00 Oxygen Pulse Oxygen Saturation 93 O2 Device Nasal Cannula Oxygen Flow Rate 4 Fraction of Inspired Oxygen ( 30 FIO2) Intake & Output 09/06/16 09/07/16 09/08/16 09/09/16 06:59 06:59 06:59 06:59 Intake Total 2666 3162 2504 200 Output Total 2750 1575 1700 450 Balance -84 1587 804 -250 Patient's weight 99.393 kg 98.883 kg 100.698 kg General: Alert, Oriented x3, Cooperative, Moderate distress HEENT: Normal, PERRLA, EOMI, Anicteric Sclera Neck: Non-tender, Normal inspection, Limited range of motion Lymphatics: Normal (no adenopathy). negative: Adenopathy Respiratory: Accessory Muscle Use, Diminished, Rhonchi, Tachypnea, Wheezes, Other (Increased work of breathing) Cardiovascular: Regular rate, Normal S1, Normal S2, Murmurs GI: Normal bowel sounds, Soft, Non tender, No hepatospenomegaly, No masses, Obese Extremities/Musculoskeletal: Normal pulses, Edema, Clubbing, Cyanosis, DJD Skin: Warm,Dry and Intact, No rashes, No breakdown, No significant lesion Neurological: Normal tone, Cranial nerves 3-12 NL Psych/Mental Status: Anxious Lab/DI/Studies Reviewed: Laboratory Tests 09/07/16 09/08/16 08:42 12:15 pH 7.350 pCO2 73.0 H* 68.0 H* pO2 76.0 L - Assessment (1) Lung mass Acute R91.8 - OTHER NONSPECIFIC ABNORMAL FINDING OF LUNG FIELD Comment/Plan : Patient is right mediastinal mass, unclear etiology. This could represent malignancy. Discussed at length on August 07 with the patient and his family at the bedside. They understand this, and he seems also have a limited understanding of this although he seems to have periods of confusion. Will treat COPD exacerbation as above, he will need further diagnostic workup if he desires full treatment. (2) Acute exacerbation of chronic obstructive airways disease Acute J44.1 - CHRONIC OBSTRUCTIVE PULMONARY DISEASE W (ACUTE) EXACERBATION Comment/Plan: Continue current treatment with IV Solu-Medrol at high dose, he seems to be improving overall. Nebulizer treatments and pulmonary toilet. Continue mucolytics and pulmonary toilet. Patient was requiring BiPAP overnight, he did improve slightly. ABG was done this morning, with still elevated COPD but he clinically looks stable. Continue present care, especially since the patient does not tolerate BiPAP mask much and also does not like breathing treatments. Spoke to the patient's son at some length this afternoon. It is unclear whether the patient is of completely some item he says that he does not want any therapy. He basically tells me that he does not want any care, wants to go home even though he knows that he might . Son and I came to the conclusion that we should try to treat him for 24 more hours, if he is stable we can discharge him home tomorrow with the understanding that we have not been able to treat him completely optimally, but it is in line with the patient's wishes. Son is agreeable with this. (3) Acute respiratory failure with hypoxia Acute J96.01 - ACUTE RESPIRATORY FAILURE WITH HYPOXIA Comment/Plan: Continue O2 nebs and pulmonary toilet.. Patient remains severely symptomatic. Continue high-dose IV steroids (4) Bronchopneumonia Acute J18.0 - BRONCHOPNEUMONIA, UNSPECIFIED ORGANISM Comment/Plan: Continue antibiotics mucolytics and aggressive pulmonary toilet. Will obtain CT chest to further delineate underlying lung pathology (5) GERD (gastroesophageal reflux disease) Acute K21.9 - GASTRO-ESOPHAGEAL REFLUX DISEASE WITHOUT ESOPHAGITIS Qualifiers: Esophagitis presence: without esophagitis Qualified Code(s): K21.9 - Gastro -esophageal reflux disease without esophagitis Comment/Plan: add PI (6) Tobacco abuse Acute Z72.0 - TOBACCO USE Comment/Plan: Counseled cessation. However he does not seem particularly interested in quitting
[2016-09-08] MEDS: Levofloxacin 750 mg/150 ml D5W 750 MG/150 ML RTU IV SCH (15:36)
[2016-09-08] MEDS: NYSTATIN ORAL SUSP 5 ML PO SCH ×2 (17:35→21:35)
[2016-09-08] MEDS: ENOXAPARIN 40 MG/0.4 ML PFS SQ SCH (17:35)
[2016-09-08] MEDS ORDERED: MORPHINE 2 MG/ML INJECTION NEB ONE (21:00)
[2016-09-08] MEDS: NICOTINE 21 MG PATCH TOP SCH (21:38)
[2016-09-08] MEDS: CEFTRIAXONE 1 GM in D5W 100 ML IV SCH (21:38)
[2016-09-08 23:05] VITALS: BP 141/84
[2016-09-09] MEDS: MORPHINE 2 MG/ML INJECTION IV PRN ×9 (00:01→14:27)
[2016-09-09] MEDS: Albuterol/Ipratropium Neb 3 ML NEB NEB SCH ×3 (01:41→14:18)
[2016-09-09] MEDS: LORAZEPAM 2 MG/ML VIAL IV PRN ×2 (03:01→12:35)
[2016-09-09] MEDS: METHYLPREDNISOLONE 125 MG/2 ML VIAL IV SCH ×2 (04:18)
[2016-09-09] MEDS: NS/KCl 20 mEq 1,000 ML IV SCH ×3 (04:19→12:34)
[2016-09-09] MEDS: PANTOPRAZOLE 40 MG TAB PO SCH (05:41)
[2016-09-09 06:24] VITALS: PULSE 102; TEMP 97.8
[2016-09-09] MEDS: ACETYLCYSTEINE 20% SOLN 4 ML NEB SCH (09:03)
[2016-09-09] MEDS: NYSTATIN ORAL SUSP 5 ML PO SCH ×2 (09:03→12:03)
[2016-09-09] MEDS: GUAIFENESIN 600 MG LA TAB PO SCH (09:03)
[2016-09-09] MEDS: BENAZEPRIL 20 MG TAB PO SCH (09:03)
[2016-09-09] MEDS: ROSUVASTATIN 10 MG TAB PO SCH (09:03)
[2016-09-09] MEDS: BUDESONIDE 0.5 MG NEB NEB SCH (09:22)
[2016-09-09] MEDS: HALOPERIDOL 5 MG/ML VIAL IM PRN (12:36)
[2016-09-09] MEDS ORDERED: HALOPERIDOL 5 MG/ML VIAL IV PRN (12:46)
--- NOTE | 2016-09-09 12:48 | PCM.DCS92 ---
- Final/Secondary Discharge Diagnosis (1) Lung mass Acute R91.8 - OTHER NONSPECIFIC ABNORMAL FINDING OF LUNG FIELD Comment: Patient has a right mediastinal mass, unclear etiology. This could represent malignancy. Discussed at length on August 07 with the patient and his family at the bedside. Family the patient seemed understand the meaning of this , but the patient does not want any further workup. (2) Acute exacerbation of chronic obstructive airways disease Acute J44.1 - CHRONIC OBSTRUCTIVE PULMONARY DISEASE W (ACUTE) EXACERBATION Present on Admission: Yes Comment: Continue current treatment with IV Solu-Medrol at high dose, he seems to be improving overall. Nebulizer treatments and pulmonary toilet. Continue mucolytics and pulmonary toilet. Patient was requiring BiPAP overnight, he did improve slightly. ABG was done this morning, with still elevated COPD but he clinically looks stable. Continue present care, especially since the patient does not tolerate BiPAP mask much and also does not like breathing treatments. Spoke to the patient's son at some length this afternoon. It is unclear whether the patient is of completely some item he says that he does not want any therapy. He basically tells me that he does not want any care, wants to go home even though he knows that he might . Son and I came to the conclusion that we should try to treat him for 24 more hours, if he is stable we can discharge him home tomorrow with the understanding that we have not been able to treat him completely optimally, but it is in line with the patient's wishes. Son is agreeable with this. (3) Acute respiratory failure with hypoxia Acute J96.01 - ACUTE RESPIRATORY FAILURE WITH HYPOXIA Present on Admission: Yes Comment: Continue O2 nebs and pulmonary toilet.. Patient remains severely symptomatic. Continue high-dose IV steroids (4) Bronchopneumonia Acute J18.0 - BRONCHOPNEUMONIA, UNSPECIFIED ORGANISM Comment: Continue antibiotics mucolytics and aggressive pulmonary toilet. Will obtain CT chest to further delineate underlying lung pathology (5) GERD (gastroesophageal reflux disease) Acute K21.9 - GASTRO-ESOPHAGEAL REFLUX DISEASE WITHOUT ESOPHAGITIS without esophagitis K21.9 - Gastro-esophageal reflux disease without esophagitis Comment: add PI (6) Tobacco abuse Acute Z72.0 - TOBACCO USE Present on Admission: Yes Comment: Counseled cessation. However he does not seem particularly interested in quitting Discharge Disposition: Hospice Care Inpatient Discharge Condition: Critical Cognitive Discharge Status: Unable to communicate needs Fuctional Discharge Status: Bed Bound Physician Follow up/Referrals: Pasha Farah MD [Primary Care Provider] - One Week New Prescriptions: Cefdinir [Omnicef] 300 mg PO BID 3 Days Levofloxacin [Levaquin] 750 mg PO DAILY #3 tab Prednisone [Sterapred Ds] 10 mg PO DIR #21 pack O2 Device: Room Air - DC Summary Notes HPI/Notes: This is a 58-year-old male with a history of COPD was admitted to the hospital with exacerbation. He did not tolerate breathing treatments or BiPAP, he intermittently became agitated removed his BiPAP mask and refused breathing treatments. He also refused lab work intermittently during this hospital stay. His son and other family members were present, did their best to convince him to tolerate the treatment so they can improve. He continued to say that he does not want to be in the hospital, did not want to be treated. I had several extensive discussions with the patient's son and other family members at the bedside over the last couple of days, yesterday we decided to give him 1 more day of treatment to see if he improved, and if not we agreed to discharge from the hospital. This morning, hospice was consulted and the patient and family have agreed to discharge the patient inpatient hospice today. Hospital Course Note:: Discharge summary on patient named JOSE DE JESUS CALZADA admitted to [facility] on 09/04/16 by Alex Salvador MD. Date of discharge is []. Total Time: 48 - Physical Exam Vital Signs: Last Vital Signs Temp 97.8 F 09/09/16 06:00 Pulse 102 09/09/16 06:00 Resp 24 09/09/16 06:00 BP 141/84 09/08/16 22:00 Pulse Ox 90 L 09/09/16 06:00 Oxygen Pulse Oxygen Saturation 90 O2 Device Room Air Oxygen Flow Rate 4 Fraction of Inspired Oxygen ( 35 FIO2) Constitutional: Distress. negative: Well appearing (Acutely ill-appearing) Oriented to: Not Oriented - HEENT Head: Normal ( normocephalic) Eye: Normal (PERRL, EOMI, Sclera white) Oropharynx: Normal (Pharynx:Moist without exudate,Gums-no swelling) ENT EAC: Normal TMJ: Normal Nose: No Symptoms Reported (septum midline) - Respiratory/Cardiovascular Respiratory: Accessory Muscle Use, Diminished, Rhonchi, Tachypnea, Wheezes, Other (Increased work of breathing) - GI Auscultation: Normal (NABS) Palpation: Normal (Soft,No rebound or guarding, non distended) Tenderness: Non tender - Musculoskeletal Back: Normal (Non-Tender). negative: Abrasion, Ecchymosis Extremities: Normal (Normal tone, Pulses 2+ No cyanosis or edema, FROM), Femoral Pulse, Pedal Pulse. negative: Calf Tenderness, Clubbing, Edema, Pedal Edema - Integumentary Lymphatics: Normal (no adenopathy). negative: Adenopathy - Neurologic Memory Impaired: Normal Cerebellar: Normal Mood Description: Normal Thought: Coherent Perception: Normal
[2016-09-09] MEDS ORDERED: MORPHINE PCA 50 ML IV SCH (13:00)
[2016-09-09] MEDS ORDERED: METHYLPREDNISOLONE 125 MG/2 ML VIAL IV SCH (16:00)
== END 2016-09-09 14:40 | disposition hospice, inpatient (51) | DRG 190 ==
LOC: ED 20:38 → MPS3 22:17
PROVIDERS: ADMIT Hospitalist; ATTEND Internal Medicine
PROC: 039B3ZZ Drainage of Right Radial Artery, Percutaneous Approach (ICD-10-PCS; principal; 2016-09-04)
PROC: 5A09357 Assistance with Respiratory Ventilation, Less than 24 Consecutive Hours, Continuous Positive Airway Pressure (ICD-10-PCS; 2016-09-07)
DX: J44.1 Chronic obstructive pulmonary disease with (acute) exacerbation (principal); J96.01 Acute respiratory failure with hypoxia; J18.0 Bronchopneumonia, unspecified organism; J44.0 Chronic obstructive pulmonary disease with (acute) lower respiratory infection; K21.9 Gastro-esophageal reflux disease without esophagitis; R91.8 Other nonspecific abnormal finding of lung field; E78.00 Pure hypercholesterolemia, unspecified; Z88.5 Allergy status to narcotic agent; J20.9 Acute bronchitis, unspecified; I10 Essential (primary) hypertension; F17.218 Nicotine dependence, cigarettes, with other nicotine-induced disorders; Z51.5 Encounter for palliative care; Z66 Do not resuscitate
CPT/HCPCS: 36415; 36600; 71010; 71020; 71275; 80048; 80053; 82803; 83605; 83735; 84484; 85025; 85027; 85610; 85730; 87040; 93005; 94640; 94660; 96361; 96372; 96374; 99284; 99406; A9698; G0237; J0456; J0696; J1630; J1650; J1956; J2060; J2270; J2930; J3490; J7040; J7060; J7070; J7608; J7620